=== PATIENT | female | born 1955 | race Caucasian/White ===

== ENCOUNTER 2023-10-03 12:49 | Outpatient (OUT) | payer SELFPAY | END 2023-10-03 12:50 | disposition home or self-care (01) | LOC: PST 12:50 | PROVIDERS: Visit Provider Surgery | DX: Z01.818 Encounter for other preprocedural examination (principal) ==

== ENCOUNTER 2023-10-14 07:09 | Day surgery (SDC) | payer MEDICARE, SELFPAY ==
[2023-10-14 07:24] VITALS: BP 161/90; PULSE 86; TEMP 36.7; O2SAT 98; BMI 21.0
[2023-10-14] MEDS: LACTATED RINGER'S SOLUTION 1,000 ML 50 ML IV (07:38)
--- NOTE | 2023-10-14 08:03 | PM.GSPRC ---
Date of procedure: 10/14/23 Indications for Procedure: diagnostic colonoscopy, change in bowel habits/caliber Pre-op diagnosis: diagnostic colonoscopy, change in bowel habits/caliber Post-op diagnosis: other (sigmoid diverticulosis ) Procedure: Previous colonoscopy: 2016 procedure: diagnostic colonoscopy The patient was given IV conscious sedation.? The patient's SPO2 remained above 90% throughout the procedure. The colonoscope was inserted per rectum and advanced under direct vision to the cecum without difficulty.? The prep was good.? Findings: Terminal ileum os: normal Cecum/Ascending colon: normal Transverse colon: normal Descending/Sigmoid colon: sigmoid diverticulosis Rectum/Anus: examined in normal and retroflexed positions and was normal Withdrawal Time was (minutes): 10 The colon was decompressed and the scope was removed.? The patient tolerated the procedure well. Recommendations/Plan: 1.? Lifestyle and dietary modifications as discussed 2.? F/U 10 years for repeat c-scope 3.? Discussed with the family Findings: sigmoid diverticulosis Anesthesia: MAC Surgeon: Dav Bourne Procedure Summary: diagnostic colonoscopy, sigmoid diverticulosis Estimated blood loss (mL): 0 Complications: No Pathology: none sent Condition: stable Disposition: PACU
[2023-10-14 08:42] VITALS: BP 102/64; PULSE 69; TEMP 35.9; O2SAT 99
[2023-10-14 08:57] VITALS: BP 109/58; PULSE 64; O2SAT 99
[2023-10-14 09:12] VITALS: BP 108/62; PULSE 68; O2SAT 100
== END 2023-10-14 09:22 | disposition home or self-care (01) ==
PROVIDERS: PCP Family Medicine; Visit Provider Surgery
PROC: (CPT 45378; principal; 2023-10-14 08:20)
DX: R19.4 Change in bowel habit (principal); K57.30 Diverticulosis of large intestine without perforation or abscess without bleeding; Z90.710 Acquired absence of both cervix and uterus; J45.909 Unspecified asthma, uncomplicated; F41.9 Anxiety disorder, unspecified; M79.7 Fibromyalgia; M51.36 Other intervertebral disc degeneration, lumbar region; Z87.891 Personal history of nicotine dependence
CPT/HCPCS: 45378; J2704